=== PATIENT | male | born 1995 | race Caucasian/White ===

== ENCOUNTER 2017-10-12 22:00 | Emergency (ER) | payer OTHER ==
[2017-10-12 22:26] VITALS: BP 130/73
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
== END 2017-10-12 23:31 | disposition home or self-care (01) ==
LOC: ER 22:00
DX: S40.812A Abrasion of left upper arm, initial encounter (principal); V89.2XXA Person injured in unspecified motor-vehicle accident, traffic, initial encounter
CPT/HCPCS: 99283